=== PATIENT | male | born 1975 | race Caucasian/White ===

== ENCOUNTER 2017-03-31 11:54 | Inpatient (IN) | payer OTHER ==
[2017-03-31 12:42] VITALS: BMI 26.2
--- NOTE | 2017-03-31 15:11 | HP ---
Admission ROS [facility] - [facility] Chief Complaint: I am here to get help because it was a referral and need to be clean. Allergies/Adverse Reactions: Allergies Allergy/AdvReac Type Severity Reaction Status Date / Time No Known Allergies Allergy Verified 03/31/17 14:52 History of Present Illness: pt is a41yr old male with a history of alcohol dependence seeking rehab for treatment. Exam Limitations: No Limitations - Ebola screening Have you traveled outside of the country in the last 21 days: No Have you had contact with anyone from an Ebola affected area: No Have you been sick,other than usual withdrawal symptoms: No Do you have a fever: No - Review of Systems Constitutional: No Symptoms Reported EENT: reports: No Symptoms Reported Respiratory: reports: No Symptoms reported Cardiac: reports: No Symptoms Reported GI: reports: No Symptoms Reported : reports: No Symptoms Reported Musculoskeletal: reports: No Symptoms Reported Integumentary: reports: No Symptoms Reported Neuro: reports: No Symptoms reported Endocrine: reports: No Symptoms Reported Hematology: reports: No Symptoms Reported Psychiatric: reports: No Sypmtoms Reported, Judgement Intact, Orientated x3 Other Systems: Reviewed and Negative Patient History - Patient Medical History Hx Anemia: No Hx Asthma: No Hx Chronic Obstructive Pulmonary Disease (COPD): No Hx Cancer: No Hx Cardiac Disorders: No Hx Congestive Heart Failure: No Hx Hypertension: No Hx Hypercholesterolemia: No Hx Pacemaker: No HX Cerebrovascular Accident: No Hx Seizures: No Hx Diabetes: No Hx Gastrointestinal Disorders: No Hx Liver Disease: No Hx Genitourinary Disorders: No Hx Sexually Transmitted Disorders: No Hx Renal Disease (ESRD): No Hx Thyroid Disease: No Hx Human Immunodeficiency Virus (HIV): No (negative) Hx Hepatitis C: No (negatuve) Hx Depression: No Hx Suicide Attempt: No (denies) Hx Bipolar Disorder: No Hx Schizophrenia: No - Patient Surgical History Past Surgical History: No Hx Neurologic Surgery: No Hx Cataract Extraction: No Hx Cardiac Surgery: No Hx Lung Surgery: No Hx Breast Surgery: No Hx Breast Biopsy: No Hx Abdominal Surgery: No Hx Appendectomy: No Hx Cholecystectomy: No Hx Genitourinary Surgery: No Hx Section: No Hx Orthopedic Surgery: No Anesthesia Reaction: No - PPD History Previous Implant?: Yes Documented Results: Negative w/o proof Implanted On Prior [facility] Admission?: No PPD to be Administered?: Yes - Reproductive History Patient is a Female of Child Bearing Age (11 -55 yrs old): No - Smoking Cessation Smoking history: Current every day smoker Have you smoked in the past 12 months: Yes Aproximately how many cigarettes per day: 20 Hx Chewing Tobacco Use: No Initiated information on smoking cessation: Yes 'Breaking Loose' booklet given: 03/31/17 - Substance & Tx. History Hx Alcohol Use: Yes Hx Substance Use: Yes Substance Use Type: Alcohol, Marijuana Hx Substance Use Treatment: Yes ([facility] detox a year ago 04/2016) - Substances Abused Alcohol-vodka Route: Oral Frequency: 3-6 times per week Amount used: 1 liter Age of first use: 13 Date of Last Use: 03/22/17 Marijuana Route: Smoking Frequency: Daily Amount used: $5 Age of first use: 13 Date of Last Use: 03/31/17 Family Disease History - Family Disease History Family History: Denies Admission Physical Exam [facility] - Vital Signs Vital Signs: Vital Signs - 24 hr 03/31/17 12:40 Temperature 97.4 F L Pulse Rate 76 Respiratory 20 Rate Blood Pressure 120/71 - Physical General Appearance: Yes: Appropriately Dressed, Mild Distress, Irritable HEENTM: Yes: Normal Voice Respiratory: Yes: Lungs Clear, Normal Breath Sounds, No Respiratory Distress Neck: Yes: No masses,lesions,Nodules Breast: Yes: Within Normal Limits Cardiology: Yes: Regular Rhythm, Regular Rate, S1, S2 Abdominal: Yes: Normal Bowel Sounds, Non Tender Genitourinary: Yes: Within Normal Limits Back: Yes: Normal Inspection Musculoskeletal: Yes: Within Normal Limits Extremities: Yes: Normal Capillary Refill Neurological: Yes: Fully Oriented, Alert, Normal Response Integumentary: Yes: Normal Color Lymphatic: Yes: Within Normal Limits - Diagnostic (1) Alcohol dependence in remission Current Visit: No Status: Chronic (2) Nicotine dependence Current Visit: Yes Status: Chronic Qualifiers: Nicotine product type: cigarettes Substance use status: uncomplicated Qualified Code(s): F17.210 - Nicotine dependence, cigarettes, uncomplicated Cleared for Admission S - Detox or Rehab [facility] Level of Care: Medically Managed Claeared for Rehab Admission: Yes [facility] Breath Alcohol Content Breath Alcohol Content: 0 Urine Drug Screen - Results Drug Screen Negative: No Urine Drug Screen Results: THC-Marijuana
[2017-03-31] MEDS ORDERED: hydrOXYzine PAMOATE 50 MG CAPSULE (FP) PO PRN (15:15)
[2017-03-31] MEDS ORDERED: guaiFENesin/D-METHORPHAN HB 10 ML UNIT-DOSE CUPS PO PRN (15:15)
[2017-03-31] MEDS ORDERED: LOPERAMIDE HCL 2 MG CAPSULE PO PRN (15:15)
[2017-03-31] MEDS ORDERED: MAGNESIUM HYDROX 2400MG/30ML ORAL SUSPENSION 30 ML CUP PO PRN (15:15)
[2017-03-31] MEDS ORDERED: IBUPROFEN 400 MG TABLET (FP) PO PRN (15:15)
[2017-03-31] MEDS ORDERED: MAGNESIUM CITRATE 300 ML BOTTLE PO PRN (15:15)
[2017-03-31] MEDS ORDERED: MAG HYDROX/AL HYDROX/SIMETH 30 ML UNIT-DOSE CUP PO PRN (15:15)
[2017-03-31] MEDS ORDERED: NICOTINE POLACRILEX 4 MG GUM BUC PRN (15:15)
[2017-03-31] MEDS ORDERED: P-EPHED 60MG/TRIPROLIDI 2.5MG TABLET PO PRN (15:15)
[2017-03-31] MEDS ORDERED: MENTHOL/PHENOL 1 EACH UD MM PRN (15:15)
[2017-03-31] MEDS: FLUTICASONE PROP 0.05% 16 GM NASAL SPRAY NS SCH (21:26)
[2017-03-31] MEDS: THIAMINE HCL 100 MG TABLET (FP) PO SCH (21:29)
[2017-03-31] MEDS: diphenhydrAMINE HCL 50 MG CAPSULE PO PRN (21:29)
[2017-03-31] MEDS ORDERED: PT OWN MED DRAWER 7, Y5N ONE (21:44)
[2017-03-31 22:07] LABS: URINE APPEARANCE CLEAR; URINE BILIRUBIN NEGATIVE (NEGATIVE); URINE BLOOD NEGATIVE (NEGATIVE); URINE COLOR YELLOW; URINE GLUCOSE (UA) NEGATIVE (NEGATIVE); URINE KETONE NEGATIVE (NEGATIVE); URINE LEUK ESTERASE NEGATIVE (NEGATIVE); URINE NITRITE NEGATIVE (NEGATIVE); URINE PROTEIN NEGATIVE (NEGATIVE); URINE UROBILINOGEN NEGATIVE mg/dL (0.2-1.0)
[2017-04-01] MEDS ORDERED: PT OWN MED DRAWER 7, Y5N ONE (08:58)
--- NOTE | 2017-04-01 09:26 | HP ---
Psychiatrist Admission - Data Date of interview: 04/01/17 Admission source[facility] Identifying data: This is the first [facility] admission for this 41 years old single male, unemployed on food stamp , homeless Medical History: Unremakable. Smokes cigarettes 1ppd Psychiatric History: Denies history of previous psychiatric treatment Physical/Sexual Abuse/Trauma History: Denies history of emotional, physical or sexual abuse as well as DV relationship Additional Comment: Reports history multiple misdemeanor arrests. Denies being on probation at present Vital Signs: Vital Signs - 24 hr 03/31/17 04/01/17 04/01/17 12:40 00:30 03:30 Temperature 97.4 F L Pulse Rate 76 Respiratory 20 18 18 Rate Blood Pressure 120/71 04/01/17 06:50 Temperature 97.6 F Pulse Rate 62 Respiratory 18 Rate Blood Pressure 115/74 Allergies/Adverse Reactions: Allergies Allergy/AdvReac Type Severity Reaction Status Date / Time No Known Allergies Allergy Verified 03/31/17 14:52 Date of last physical exam: 03/31/17 Concur with the findings of this exam: Yes - Substance Abuse/Tx History Hx Alcohol Use: Yes Hx Substance Use: Yes Substance Use Type: Alcohol (Started drinking alcohol at age 13, consumes one liter 3-6 times weekly. Last drink on 03/22/17), Marijuana (Started smoking marijuana at age 13, consumes $5 worth daily. Last smoked on 03/31/17) Hx Substance Use Treatment: Yes (5 previous inpt detox & 5 inpt rehab) - Admission Criteria Previous failed treatment: No Poor recovery environment: Yes Lacks judgement: Yes Mental Status Exam - Mental Status Exam Alert and Oriented to: Time, Place, Person Cognitive Function: Fair Patient Appearance: Well Groomed Mood: Anxious Affect: Appropriate Patient Behavior: Cooperative Speech Pattern: Clear Voice Loudness: Normal Thought Process: Intact, Goal Oriented Thought Disorder: Not Present Hallucinations: Denies Suicidal Ideation: Denies Homicidal Ideation: Denies Insight/Judgement: Fair Sleep: Well Appetite: Good Muscle strength/Tone: Normal Gait/Station: Normal Psychiatric Findings - Problem List ([place] 1, 2,3) (1) Alcohol dependence Current Visit: Yes Status: Acute (2) Cannabis dependence Current Visit: Yes Status: Acute (3) Nicotine dependence Current Visit: Yes Status: Chronic Qualifiers: Nicotine product type: cigarettes Substance use status: uncomplicated Qualified Code(s): F17.210 - Nicotine dependence, cigarettes, uncomplicated (4) Substance-induced anxiety disorder Current Visit: Yes Status: Acute - Initial Treatment Plan Initial Treatment Plan: Monitor progress
[2017-04-01 10:05] LABS: MCH 35.1 pg (25.7-33.7); MCHC 34.1 g/dl (32.0-35.9); MEAN CELL VOLUME 102.8 fl (80-96); PLATELET COUNT 217 K/MM3 (134-434); RDW 13.5 % (11.9-15.9); WHITE BLOOD COUNT 5.8 K/mm3 (4.0-10.0)
[2017-04-01 10:27] LABS: ALBUMIN 3.9 g/dl (3.4-5.0); ALK PHOS 52 U/L (45-117); ANION GAP 5 (8-16); BILIRUBIN,TOTAL 0.2 mg/dL (0.2-1.0); CO2 28 mmol/L (21-32); CREATININE 0.9 mg/dL (0.7-1.3); GLUCOSE,RANDOM 82 mg/dL (74-106); SGOT/AST 14 U/L (15-37); SGPT/ALT 16 U/L (12-78); TOT PROT 6.9 g/dl (6.4-8.2)
[2017-04-01] MEDS: LORATADINE 10 MG TABLET PO SCH (10:46)
[2017-04-01] MEDS: NICOTINE 21 MG/24 HOURS TOPICAL PATCH TD SCH (10:46)
[2017-04-01] MEDS: PRENATAL VITAMINS W/ FOLIC ACID TABLET (FP) PO SCH (10:46)
[2017-04-01] MEDS: FLUTICASONE PROP 0.05% 16 GM NASAL SPRAY NS SCH ×2 (10:46→21:39)
--- NOTE | 2017-04-01 11:27 | EKG ---
Test Reason : Blood Pressure : / mmHG Vent. Rate : 049 BPM Atrial Rate : 049 BPM P-R Int : 156 ms QRS Dur : 096 ms QT Int : 418 ms P-R-T Axes : 061 054 056 degrees QTc Int : 377 ms SINUS BRADYCARDIA OTHERWISE NORMAL ECG NO PREVIOUS ECGS AVAILABLE Confirmed by KAJAL CAIN, MICHELE ([id number]) on 04/01/2017 11:27:47 AM Referred By: Salomon Bradford Confirmed By:MICHELE RDZ MD
[2017-04-01] MEDS: THIAMINE HCL 100 MG TABLET (FP) PO SCH (21:39)
[2017-04-01] MEDS: diphenhydrAMINE HCL 50 MG CAPSULE PO PRN (23:04)
[2017-04-02] MEDS: PRENATAL VITAMINS W/ FOLIC ACID TABLET (FP) PO SCH (09:50)
[2017-04-02] MEDS: LORATADINE 10 MG TABLET PO SCH (09:50)
[2017-04-02] MEDS: NICOTINE 21 MG/24 HOURS TOPICAL PATCH TD SCH (09:51)
[2017-04-02] MEDS: FLUTICASONE PROP 0.05% 16 GM NASAL SPRAY NS SCH ×2 (09:51→21:24)
[2017-04-02] MEDS: THIAMINE HCL 100 MG TABLET (FP) PO SCH (21:24)
[2017-04-02] MEDS: diphenhydrAMINE HCL 50 MG CAPSULE PO PRN (21:25)
[2017-04-03] MEDS: LORATADINE 10 MG TABLET PO SCH (10:08)
[2017-04-03] MEDS: FLUTICASONE PROP 0.05% 16 GM NASAL SPRAY NS SCH ×2 (10:08→21:36)
[2017-04-03] MEDS: PRENATAL VITAMINS W/ FOLIC ACID TABLET (FP) PO SCH (10:08)
[2017-04-03] MEDS: NICOTINE 21 MG/24 HOURS TOPICAL PATCH TD SCH (10:09)
[2017-04-03] MEDS: THIAMINE HCL 100 MG TABLET (FP) PO SCH (21:26)
[2017-04-03] MEDS: diphenhydrAMINE HCL 50 MG CAPSULE PO PRN (21:26)
[2017-04-04] MEDS: FLUTICASONE PROP 0.05% 16 GM NASAL SPRAY NS SCH ×2 (09:56→21:39)
[2017-04-04] MEDS: NICOTINE 21 MG/24 HOURS TOPICAL PATCH TD SCH (09:57)
[2017-04-04] MEDS: PRENATAL VITAMINS W/ FOLIC ACID TABLET (FP) PO SCH (09:57)
[2017-04-04] MEDS: ACETAMINOPHEN 325 MG TABLET (FP) PO PRN ×2 (09:57→22:32)
[2017-04-04] MEDS: LORATADINE 10 MG TABLET PO SCH (09:57)
[2017-04-04] MEDS: THIAMINE HCL 100 MG TABLET (FP) PO SCH (21:29)
[2017-04-04] MEDS: diphenhydrAMINE HCL 50 MG CAPSULE PO PRN (21:29)
[2017-04-05] MEDS: ACETAMINOPHEN 325 MG TABLET (FP) PO PRN ×3 (09:53→23:50)
[2017-04-05] MEDS: FLUTICASONE PROP 0.05% 16 GM NASAL SPRAY NS SCH ×2 (09:54→21:40)
[2017-04-05] MEDS: LORATADINE 10 MG TABLET PO SCH (09:54)
[2017-04-05] MEDS: NICOTINE 21 MG/24 HOURS TOPICAL PATCH TD SCH (09:55)
[2017-04-05] MEDS: PRENATAL VITAMINS W/ FOLIC ACID TABLET (FP) PO SCH (10:04)
[2017-04-05] MEDS: THIAMINE HCL 100 MG TABLET (FP) PO SCH (21:40)
[2017-04-05] MEDS: diphenhydrAMINE HCL 50 MG CAPSULE PO PRN (21:40)
[2017-04-06] MEDS: LORATADINE 10 MG TABLET PO SCH (10:06)
[2017-04-06] MEDS: NICOTINE 21 MG/24 HOURS TOPICAL PATCH TD SCH (10:06)
[2017-04-06] MEDS: FLUTICASONE PROP 0.05% 16 GM NASAL SPRAY NS SCH ×2 (10:06→22:03)
[2017-04-06] MEDS: PRENATAL VITAMINS W/ FOLIC ACID TABLET (FP) PO SCH (10:06)
[2017-04-06] MEDS: ACETAMINOPHEN 325 MG TABLET (FP) PO PRN ×2 (10:07→21:47)
[2017-04-06] MEDS: diphenhydrAMINE HCL 50 MG CAPSULE PO PRN (21:46)
[2017-04-06] MEDS: THIAMINE HCL 100 MG TABLET (FP) PO SCH (21:46)
[2017-04-07] MEDS: ACETAMINOPHEN 325 MG TABLET (FP) PO PRN (10:11)
[2017-04-07] MEDS: PRENATAL VITAMINS W/ FOLIC ACID TABLET (FP) PO SCH (10:12)
[2017-04-07] MEDS: LORATADINE 10 MG TABLET PO SCH (10:12)
[2017-04-07] MEDS: NICOTINE 21 MG/24 HOURS TOPICAL PATCH TD SCH (10:13)
[2017-04-07] MEDS: FLUTICASONE PROP 0.05% 16 GM NASAL SPRAY NS SCH ×2 (10:13→21:24)
[2017-04-07] MEDS: diphenhydrAMINE HCL 50 MG CAPSULE PO PRN (21:24)
[2017-04-07] MEDS: THIAMINE HCL 100 MG TABLET (FP) PO SCH (21:24)
[2017-04-08] MEDS: LORATADINE 10 MG TABLET PO SCH (10:16)
[2017-04-08] MEDS: ACETAMINOPHEN 325 MG TABLET (FP) PO PRN (10:16)
[2017-04-08] MEDS: PRENATAL VITAMINS W/ FOLIC ACID TABLET (FP) PO SCH (10:16)
[2017-04-08] MEDS: NICOTINE 21 MG/24 HOURS TOPICAL PATCH TD SCH (10:17)
[2017-04-08] MEDS: FLUTICASONE PROP 0.05% 16 GM NASAL SPRAY NS SCH ×2 (10:18→22:20)
[2017-04-08] MEDS: THIAMINE HCL 100 MG TABLET (FP) PO SCH (22:19)
[2017-04-08] MEDS: diphenhydrAMINE HCL 50 MG CAPSULE PO PRN (22:21)
[2017-04-09] MEDS: NICOTINE 21 MG/24 HOURS TOPICAL PATCH TD SCH (10:19)
[2017-04-09] MEDS: FLUTICASONE PROP 0.05% 16 GM NASAL SPRAY NS SCH ×2 (10:19→21:30)
[2017-04-09] MEDS: PRENATAL VITAMINS W/ FOLIC ACID TABLET (FP) PO SCH (10:20)
[2017-04-09] MEDS: LORATADINE 10 MG TABLET PO SCH (10:20)
[2017-04-09] MEDS: diphenhydrAMINE HCL 50 MG CAPSULE PO PRN (21:30)
[2017-04-09] MEDS: THIAMINE HCL 100 MG TABLET (FP) PO SCH (21:30)
[2017-04-10] MEDS: NICOTINE 21 MG/24 HOURS TOPICAL PATCH TD SCH (09:49)
[2017-04-10] MEDS: LORATADINE 10 MG TABLET PO SCH (09:49)
[2017-04-10] MEDS: FLUTICASONE PROP 0.05% 16 GM NASAL SPRAY NS SCH ×2 (09:49→21:53)
[2017-04-10] MEDS: PRENATAL VITAMINS W/ FOLIC ACID TABLET (FP) PO SCH (09:49)
[2017-04-10] MEDS: THIAMINE HCL 100 MG TABLET (FP) PO SCH (21:53)
[2017-04-11] MEDS: NICOTINE 21 MG/24 HOURS TOPICAL PATCH TD SCH (10:02)
[2017-04-11] MEDS: FLUTICASONE PROP 0.05% 16 GM NASAL SPRAY NS SCH ×2 (10:02→23:21)
[2017-04-11] MEDS: LORATADINE 10 MG TABLET PO SCH (10:03)
[2017-04-11] MEDS: PRENATAL VITAMINS W/ FOLIC ACID TABLET (FP) PO SCH (10:03)
[2017-04-11] MEDS: THIAMINE HCL 100 MG TABLET (FP) PO SCH (23:20)
[2017-04-11] MEDS: diphenhydrAMINE HCL 50 MG CAPSULE PO PRN (23:21)
[2017-04-12] MEDS: LORATADINE 10 MG TABLET PO SCH (10:20)
[2017-04-12] MEDS: PRENATAL VITAMINS W/ FOLIC ACID TABLET (FP) PO SCH (10:20)
[2017-04-12] MEDS: FLUTICASONE PROP 0.05% 16 GM NASAL SPRAY NS SCH ×2 (10:21→21:28)
[2017-04-12] MEDS: NICOTINE 21 MG/24 HOURS TOPICAL PATCH TD SCH (10:21)
[2017-04-12] MEDS: THIAMINE HCL 100 MG TABLET (FP) PO SCH (21:28)
[2017-04-13] MEDS: FLUTICASONE PROP 0.05% 16 GM NASAL SPRAY NS SCH ×2 (09:54→22:39)
[2017-04-13] MEDS: PRENATAL VITAMINS W/ FOLIC ACID TABLET (FP) PO SCH (09:54)
[2017-04-13] MEDS: LORATADINE 10 MG TABLET PO SCH (09:54)
[2017-04-13] MEDS: NICOTINE 21 MG/24 HOURS TOPICAL PATCH TD SCH (09:55)
[2017-04-13] MEDS: THIAMINE HCL 100 MG TABLET (FP) PO SCH (22:38)
[2017-04-13] MEDS: diphenhydrAMINE HCL 50 MG CAPSULE PO PRN (22:38)
[2017-04-14 07:05] VITALS: TEMP 97.8
[2017-04-14] MEDS: LORATADINE 10 MG TABLET PO SCH (10:01)
[2017-04-14] MEDS: NICOTINE 21 MG/24 HOURS TOPICAL PATCH TD SCH (10:01)
[2017-04-14] MEDS: FLUTICASONE PROP 0.05% 16 GM NASAL SPRAY NS SCH ×2 (10:01→21:30)
[2017-04-14] MEDS: PRENATAL VITAMINS W/ FOLIC ACID TABLET (FP) PO SCH (10:01)
[2017-04-14] MEDS: THIAMINE HCL 100 MG TABLET (FP) PO SCH (21:31)
[2017-04-14] MEDS: diphenhydrAMINE HCL 50 MG CAPSULE PO PRN (21:31)
[2017-04-15] MEDS: LORATADINE 10 MG TABLET PO SCH (10:02)
[2017-04-15] MEDS: PRENATAL VITAMINS W/ FOLIC ACID TABLET (FP) PO SCH (10:02)
[2017-04-15] MEDS: FLUTICASONE PROP 0.05% 16 GM NASAL SPRAY NS SCH ×2 (10:02→22:23)
[2017-04-15] MEDS: NICOTINE 21 MG/24 HOURS TOPICAL PATCH TD SCH (10:02)
[2017-04-15] MEDS: diphenhydrAMINE HCL 50 MG CAPSULE PO PRN (22:23)
[2017-04-15] MEDS: THIAMINE HCL 100 MG TABLET (FP) PO SCH (22:23)
[2017-04-16 07:16] VITALS: BP 125/88; PULSE 95
--- NOTE | 2017-04-16 09:24 | PN ---
Psychiatric Progress Note Vital Signs: Vital Signs Period Temp Pulse Resp BP Sys/Fry Pulse Ox Last 24 Hr 97.8 F 95 18-18 125/88 Date of Session: 04/16/17 Chief Complaint:: Discharge Note HPI: Patient addressing Alcohol and Cannabis Dependence comorbid with Nicotine Dependence and Substance-Induced Anxiety Disorder Current Medications: Active Medications Generic Name Dose Route Start Last Admin Trade Name Freq PRN Reason Stop Dose Admin Acetaminophen 650 mg 03/31/17 15:15 04/08/17 10:16 Tylenol - PO 650 mg Q4H PRN Administration PAIN Al Hydroxide/Mg Hydroxide 30 ml 03/31/17 15:15 Mylanta Oral Suspension - PO Q6H PRN DYSPEPSIA Diphenhydramine HCl 50 mg 03/31/17 15:15 04/15/17 22:23 Benadryl - PO 50 mg HSMR1 PRN Administration INSOMNIA Eucalyptus/Menthol/Phenol/Sorbitol 1 each 03/31/17 15:15 Cepastat Lozenge - MM Q4H PRN SORE THROAT Fluticasone Propionate 1 spray 03/31/17 22:00 04/15/17 22:23 Flonase - NS 1 spray BID WYATT Administration Guaifenesin 10 ml 03/31/17 15:15 Robitussin Dm - PO Q6H PRN COUGH Hydroxyzine Pamoate 50 mg 03/31/17 15:15 Vistaril - PO Q4H PRN AGITATION Ibuprofen 400 mg 03/31/17 15:15 04/03/17 10:07 Motrin - PO 400 mg Q6H PRN Administration SEVERE PAIN Loperamide HCl 4 mg 03/31/17 15:15 Imodium - PO Q6H PRN DIARRHEA Loratadine 10 mg 04/01/17 10:00 04/15/17 10:02 Claritin - PO 10 mg DAILY WYATT Administration Magnesium Citrate 300 ml 03/31/17 15:15 Citroma - PO Q48H PRN CONSTIPATION Magnesium Hydroxide 30 ml 03/31/17 15:15 Milk Of Magnesia - PO DAILY PRN CONSTIPATION Nicotine 21 mg 04/01/17 10:00 04/15/17 10:02 Nicoderm Patch - TD 21 mg DAILY WYATT Administration Nicotine Polacrilex 4 mg 03/31/17 15:15 Nicorette Gum - BUC Q2H PRN NICOTINE REPLACEMENT RX Multivit/Folic Acid/Iron 1 tab 04/01/17 10:00 04/15/17 10:02 Vitamins (Sjr) - PO 1 tab DAILY WYATT Administration Pseudoephedrine/Triprolidine 1 combo 03/31/17 15:15 Actifed - PO TID PRN NASAL CONGESTION Thiamine HCl 100 mg 03/31/17 22:00 04/15/17 22:23 Vitamin B1 - PO 100 mg HS WYATT Administration Current Side Effect: No Lab tests ordered: Yes Lab tests reviewed: Yes Provider note:: Patient has completed this program today. He has met his treatment goals and will continue to address his issues in outpatient treatment at [facility]. Told senior grant writer that from his participation in this program , he has learned to identify his triggers and has acquired the tools to address them. He is stable for discharge today Total face to face time:: 35 Mental Status Exam - Mental Status Exam Alert and Oriented to: Time, Place, Person Cognitive Function: Fair Patient Appearance: Well Groomed Mood: Hopeful, Euthymic Affect: Appropriate Patient Behavior: Cooperative Speech Pattern: Clear Voice Loudness: Normal Thought Process: Intact, Goal Oriented Thought Disorder: Not Present Hallucinations: Denies Homicidal Ideation: Denies Insight/Judgement: Fair Sleep: Fair Appetite: Good Muscle strength/Tone: Normal Gait/Station: Normal Psychiatric Treatment Plan - Problem List (1) Alcohol dependence Current Visit: Yes (2) Cannabis dependence Current Visit: Yes (3) Nicotine dependence Current Visit: Yes Qualifiers: Nicotine product type: cigarettes Substance use status: uncomplicated Qualified Code(s): F17.210 - Nicotine dependence, cigarettes, uncomplicated (4) Substance-induced anxiety disorder Current Visit: Yes Initial treatment plan: Patient is discharged today and referred to [facility] for outpatient treatment
[2017-04-16] MEDS: PRENATAL VITAMINS W/ FOLIC ACID TABLET (FP) PO SCH (09:55)
[2017-04-16] MEDS: LORATADINE 10 MG TABLET PO SCH (09:55)
[2017-04-16] MEDS: FLUTICASONE PROP 0.05% 16 GM NASAL SPRAY NS SCH (09:56)
[2017-04-16] MEDS: NICOTINE 21 MG/24 HOURS TOPICAL PATCH TD SCH (09:56)
== END 2017-04-16 10:00 | disposition home or self-care (01) | DRG 772 ==
LOC: YASAS 11:54 → Y3W 16:11
PROVIDERS: ADMIT Psychiatry & Neurology Psychiatry; ATTEND Psychiatry & Neurology Psychiatry
PROC: HZ42ZZZ Group Counseling for Substance Abuse Treatment, Cognitive-Behavioral (ICD-10-PCS; principal; 2017-03-31)
DX: F10.20 Alcohol dependence, uncomplicated (principal); F12.20 Cannabis dependence, uncomplicated; F17.210 Nicotine dependence, cigarettes, uncomplicated; F19.280 Other psychoactive substance dependence with psychoactive substance-induced anxiety disorder
CPT/HCPCS: 36415; 80053; 81003; 85027; 86593; 93005; 93010

== ENCOUNTER 2017-12-27 13:29 | Inpatient (IN) | payer OTHER ==
[2017-12-27 16:16] VITALS: BMI 23.6
--- NOTE | 2017-12-27 20:59 | HP ---
Admission [facility] Chief Complaint: I am here for rehab for alcohol Allergies/Adverse Reactions: Allergies Allergy/AdvReac Type Severity Reaction Status Date / Time No Known Allergies Allergy Verified 03/31/17 14:52 History of Present Illness: 42 yo male with hx of nicotine and alcohol dependence is here seeking rehab. PMHX: HTN not on medications, anxiety, insomnia . Denies suicidal / homicidal ideation or suicide attempts. Longest period of sobriety 5 months. Denies hx of seizures, reports hx of blackouts with last episode a week ago. Exam Limitations: No Limitations - Ebola screening Have you traveled outside of the country in the last 21 days: No Have you had contact with anyone from an Ebola affected area: No Have you been sick,other than usual withdrawal symptoms: No - Review of Systems Constitutional: Chills, Diaphoresis, Loss of Appetite, Changes in sleep, Weakness, Unintentional Wgt. Loss (20 lbs over the past three months) EENT: reports: No Symptoms Reported, Other (missing front teeth) Respiratory: reports: Other (deviated septum, reports difficulty breathing as result) Cardiac: reports: No Symptoms Reported GI: reports: Poor Appetite, Poor Fluid Intake : reports: No Symptoms Reported Musculoskeletal: reports: Joint Pain (right hip x 3 months with difficulty bending forward), Other (hx of dislocated right shoulder) Integumentary: reports: No Symptoms Reported Neuro: reports: Tremors (continues to experience tremors after detox self from alcohol) Endocrine: reports: No Symptoms Reported Hematology: reports: No Symptoms Reported Psychiatric: reports: Orientated x3, Depressed Other Systems: Reviewed and Negative Patient History - Patient Medical History Hx Anemia: No Hx Asthma: No Hx Chronic Obstructive Pulmonary Disease (COPD): No Hx Cancer: No Hx Cardiac Disorders: No Hx Congestive Heart Failure: No Hx Hypertension: Yes (when going through withdrawal ) Hx Hypercholesterolemia: No Hx Pacemaker: No HX Cerebrovascular Accident: No Hx Seizures: No Hx Dementia: No Hx Diabetes: No Hx Gastrointestinal Disorders: No Hx Liver Disease: No Hx Genitourinary Disorders: No Hx Sexually Transmitted Disorders: No Hx Renal Disease (ESRD): No Hx Thyroid Disease: No Hx Human Immunodeficiency Virus (HIV): No (last tested 2 months ago ) Hx Hepatitis C: No (negatuve) Hx Depression: No Hx Suicide Attempt: No (denies) Hx Bipolar Disorder: No Hx Schizophrenia: No - Patient Surgical History Past Surgical History: No Hx Neurologic Surgery: No Hx Cataract Extraction: No Hx Cardiac Surgery: No Hx Lung Surgery: No Hx Breast Surgery: No Hx Breast Biopsy: No Hx Abdominal Surgery: No Hx Appendectomy: No Hx Cholecystectomy: No Hx Genitourinary Surgery: No Hx Section: No Hx Orthopedic Surgery: No Anesthesia Reaction: No - PPD History Previous Implant?: Yes Documented Results: Negative w/proof Date: 04/02/17 PPD to be Administered?: No - Reproductive History Patient is a Female of Child Bearing Age (11 -55 yrs old): No - Smoking Cessation Smoking history: Current every day smoker Have you smoked in the past 12 months: Yes Aproximately how many cigarettes per day: 20 Hx Chewing Tobacco Use: No Initiated information on smoking cessation: Yes 'Breaking Loose' booklet given: 12/27/17 - Substance & Tx. History Hx Alcohol Use: Yes Hx Substance Use: Yes Substance Use Type: Alcohol Hx Substance Use Treatment: Yes ([facility] 03/31/17 - 04/16/17) - Substances Abused Alcohol Route: Oral Frequency: 3-6 times per week Amount used: 1 litter of vodka Age of first use: 13 Date of Last Use: 12/24/17 (Reports on average drinks 4x a week) Family Disease History - Family Disease History Family Disease History: Other: Father (alive, unknown ), Mother (alive, unknown ) Admission Physical Exam [facility] - Vital Signs Vital Signs: Vital Signs - 24 hr 12/27/17 16:14 Temperature 96.7 F L Pulse Rate 86 Respiratory 20 Rate Blood Pressure 137/83 - Physical General Appearance: Yes: Appropriately Dressed, Thin, Anxious HEENTM: Yes: Hearing grossly Normal, Normal ENT Inspection, Normocephalic, Normal Voice, PRASHANT, Pharynx Normal, Tm's normal Respiratory: Yes: Chest Non-Tender, Lungs Clear, Normal Breath Sounds, No Respiratory Distress, No Accessory Muscle Use Neck: Yes: Within Normal Limits Breast: Yes: Breast Exam Deferred Cardiology: Yes: Regular Rhythm, Regular Rate Abdominal: Yes: Normal Bowel Sounds, Non Tender, Flat, Soft Genitourinary: Yes: Within Normal Limits Back: Yes: Normal Inspection Musculoskeletal: Yes: full range of Motion, Gait Steady, Pelvis Stable, Other ( pain right hip) Extremities: Yes: Normal Capillary Refill, Normal Inspection, Normal Range of Motion, Non-Tender Neurological: Yes: intermediate frame tender II-XII NML intact, Fully Oriented, Alert, Motor Strength 5/5, Normal Response, Depressed Affect Integumentary: Yes: Normal Color, Dry, Warm Lymphatic: Yes: Within Normal Limits - Diagnostic (1) Right hip pain Current Visit: Yes Status: Acute (2) Alcohol dependence Current Visit: Yes Status: Acute Qualifiers: Substance use status: uncomplicated Qualified Code(s): F10.20 - Alcohol dependence, uncomplicated (3) Nicotine dependence Current Visit: Yes Status: Chronic Qualifiers: Nicotine product type: cigarettes Substance use status: uncomplicated Qualified Code(s): F17.210 - Nicotine dependence, cigarettes, uncomplicated [facility] Breath Alcohol Content Breath Alcohol Content: 0 Urine Drug Screen - Results Drug Screen Negative: No Urine Drug Screen Results: THC-Marijuana Inpatient Rehab Admission - Initial Determination Are CD services needed?: Yes Free of communicable disease: Yes Not in need of hospitalization: Yes - Rehab Admission Criteria Previous failed treatment: Yes Poor recovery environment: Yes Comorbidities: Yes Lacks judgement: Yes Patient is meeting Inpatient Rehab admission criteria:: Yes
[2017-12-27] MEDS ORDERED: MENTHOL/PHENOL 1 EACH UD MM PRN (21:10)
[2017-12-27] MEDS ORDERED: guaiFENesin/D-METHORPHAN HB 10 ML UNIT-DOSE CUPS PO PRN (21:10)
[2017-12-27] MEDS ORDERED: P-EPHED 60MG/TRIPROLIDI 2.5MG TABLET PO PRN (21:10)
[2017-12-27] MEDS ORDERED: NICOTINE POLACRILEX 2 MG GUM BC PRN (21:10)
[2017-12-27] MEDS ORDERED: MAGNESIUM HYDROX 2400MG/30ML ORAL SUSPENSION 30 ML CUP PO PRN (21:10)
[2017-12-27] MEDS ORDERED: MAG HYDROX/AL HYDROX/SIMETH 30 ML UNIT-DOSE CUP PO PRN (21:10)
[2017-12-27] MEDS ORDERED: MAGNESIUM CITRATE 300 ML BOTTLE PO PRN (21:10)
[2017-12-27] MEDS ORDERED: ACETAMINOPHEN 325 MG TABLET (FP) PO PRN (21:10)
[2017-12-27] MEDS: MELATONIN 5 MG TABLETS PO PRN (23:02)
[2017-12-27 23:03] LABS: URINE APPEARANCE CLOUDY; URINE BILIRUBIN NEGATIVE (<2.0 mg/dL); URINE COLOR YELLOW; URINE GLUCOSE (UA) NEGATIVE (NEGATIVE); URINE KETONE NEGATIVE (NEGATIVE); URINE LEUK ESTERASE NEGATIVE (NEGATIVE); URINE NITRITE NEGATIVE (NEGATIVE); URINE PROTEIN NEGATIVE (NEGATIVE); URINE UROBILINOGEN NEGATIVE mg/dL (0.2-1.0)
[2017-12-27] MEDS: LIDOCAINE PATCH REMOVAL MC SCH (23:03)
[2017-12-27] MEDS: LIDOCAINE 5% TOPICAL PATCH TP SCH (23:04)
[2017-12-27] MEDS: FLUTICASONE PROP 0.05% 16 GM NASAL SPRAY NS SCH (23:05)
[2017-12-27] MEDS: THIAMINE HCL 100 MG TABLET (FP) PO SCH (23:05)
[2017-12-28] MEDS: PRENATAL VITAMINS W/ FOLIC ACID TABLET (FP) PO SCH (09:57)
[2017-12-28] MEDS: LORATADINE 10 MG TABLET PO SCH (09:57)
[2017-12-28] MEDS: LIDOCAINE 5% TOPICAL PATCH TP SCH (09:57)
[2017-12-28] MEDS: NICOTINE 21 MG/24 HOURS TOPICAL PATCH TD SCH (09:57)
[2017-12-28 10:00] LABS: HEMATOCRIT 44.3 % (35.4-49); HEMOGLOBIN 15.3 GM/dL (11.7-16.9); MCH 36.7 pg (25.7-33.7); MCHC 34.6 g/dl (32.0-35.9); MEAN PLT VOLUME 7.7 fl (7.5-11.1); PLATELET COUNT 237 K/MM3 (134-434); RBC 4.18 M/mm3 (4.00-5.60); RDW 14.2 % (11.9-15.9); WHITE BLOOD COUNT 5.9 K/mm3 (4.0-10.0)
[2017-12-28 11:08] LABS: CHLORIDE 102 mmol/L (98-107); POTASSIUM 4.9 mmol/L (3.5-5.1); SODIUM 141 mmol/L (136-145)
--- NOTE | 2017-12-28 11:17 | HP ---
Psychiatrist Admission - Data Date of interview: 12/28/17 Admission source: [facility] Identifying data: This is the second [facility] admission for this 42 years old single male, unemployed on food stamp , homeless, residing in the group home. Medical History: Hypertension, Chronic Right. 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 Smokes cigarettes 1PPD. Psychiatric History: Patient denies history of psychiatric treatment, however feeling very anxious poor sleep and willig to start treatment. Physical/Sexual Abuse/Trauma History: Patient denies history of sexual, physical and verbal abuse. Additional Comment: Patient reports the longest period of abstinence 5 months. Vital Signs: Vital Signs - 24 hr 12/27/17 12/27/17 12/28/17 16:14 22:25 00:30 Temperature 96.7 F L 98.9 F Pulse Rate 86 71 Respiratory 20 18 18 Rate Blood Pressure 137/83 133/80 12/28/17 12/28/17 03:30 06:37 Temperature 97.9 F Pulse Rate 74 Respiratory 18 16 Rate Blood Pressure 122/76 Allergies/Adverse Reactions: Allergies Allergy/AdvReac Type Severity Reaction Status Date / Time No Known Allergies Allergy Verified 12/27/17 21:22 Date of last physical exam: 12/27/17 Concur with the findings of this exam: Yes - Substance Abuse/Tx History Hx Alcohol Use: Yes (1 liter of liqor, beer binge drinking ) Hx Substance Use: Yes Substance Use Type: Marijuana (2-3 times a week) Hx Substance Use Treatment: Yes (several detox/rehab. tx) Mental Status Exam - Mental Status Exam Alert and Oriented to: Time, Place, Person Cognitive Function: Good Patient Appearance: Well Groomed Mood: Anxious Affect: Appropriate, Mood Congruent Patient Behavior: Appropriate, Cooperative Speech Pattern: Clear, Appropriate Voice Loudness: Normal Thought Process: Intact, Goal Oriented Thought Disorder: Not Present Hallucinations: Denies Suicidal Ideation: Denies Homicidal Ideation: Denies Insight/Judgement: Fair Sleep: Poorly, Difficulty falling asleep Appetite: Fair Muscle strength/Tone: Normal Gait/Station: Normal Psychiatric Findings - Problem List ([place] 1, 2,3) (1) Alcohol dependence Current Visit: Yes Status: Acute Qualifiers: Substance use status: uncomplicated Qualified Code(s): F10.20 - Alcohol dependence, uncomplicated (2) Right hip pain Current Visit: Yes Status: Acute (3) Nicotine dependence Current Visit: Yes Status: Chronic Qualifiers: Nicotine product type: cigarettes Substance use status: uncomplicated Qualified Code(s): F17.210 - Nicotine dependence, cigarettes, uncomplicated (4) Cannabis dependence Current Visit: No Status: Acute (5) Substance-induced anxiety disorder Current Visit: No Status: Acute - Initial Treatment Plan Initial Treatment Plan: Discussed indications and properties of Buspar with the patient, patient agreed to start, he made aware of Melatonin PRN for insomnia, will monitor progress as needed.
[2017-12-28 11:24] LABS: ALBUMIN 4.3 g/dl (3.4-5.0); ALK PHOS 80 U/L (45-117); ANION GAP 11 (8-16); BILIRUBIN,TOTAL 0.4 mg/dL (0.2-1.0); BLOOD UREA NITROGEN 16 mg/dL (7-18); CALCIUM 9.5 mg/dL (8.5-10.1); CO2 28 mmol/L (21-32); CREATININE 0.8 mg/dL (0.7-1.3); GLUCOSE,RANDOM 87 mg/dL (74-106); SGOT/AST 20 U/L (15-37); SGPT/ALT 29 U/L (12-78); TOT PROT 7.7 g/dl (6.4-8.2)
[2017-12-28] MEDS: FLUTICASONE PROP 0.05% 16 GM NASAL SPRAY NS SCH ×2 (11:50→21:22)
[2017-12-28] MEDS: busPIRone HCL 5 MG TABLET PO SCH ×2 (14:05→21:22)
[2017-12-28] MEDS: THIAMINE HCL 100 MG TABLET (FP) PO SCH (21:22)
[2017-12-28] MEDS: LIDOCAINE PATCH REMOVAL MC SCH (21:23)
[2017-12-28] MEDS: MELATONIN 5 MG TABLETS PO PRN (23:17)
[2017-12-29] MEDS: busPIRone HCL 5 MG TABLET PO SCH ×3 (06:35→21:27)
[2017-12-29] MEDS: PRENATAL VITAMINS W/ FOLIC ACID TABLET (FP) PO SCH (09:42)
[2017-12-29] MEDS: FLUTICASONE PROP 0.05% 16 GM NASAL SPRAY NS SCH ×2 (09:42→21:27)
[2017-12-29] MEDS: LORATADINE 10 MG TABLET PO SCH (09:42)
[2017-12-29] MEDS: NICOTINE 21 MG/24 HOURS TOPICAL PATCH TD SCH (09:43)
[2017-12-29] MEDS: LIDOCAINE 5% TOPICAL PATCH TP SCH (09:43)
--- NOTE | 2017-12-29 09:49 | EKG ---
Test Reason : Blood Pressure : / mmHG Vent. Rate : 069 BPM Atrial Rate : 069 BPM P-R Int : 138 ms QRS Dur : 090 ms QT Int : 378 ms P-R-T Axes : 061 057 064 degrees QTc Int : 405 ms NORMAL SINUS RHYTHM NORMAL ECG WHEN COMPARED WITH ECG OF 31-MAR-2017 20:19, NO SIGNIFICANT CHANGE WAS FOUND Confirmed by JOSEPH MERINO MD ([id number]) on 12/29/2017 9:49:26 AM Referred By: Confirmed By:JOSEPH MERINO MD
[2017-12-29] MEDS: IBUPROFEN 400 MG TABLET (FP) PO PRN (14:30)
[2017-12-29] MEDS: hydrOXYzine PAMOATE 50 MG CAPSULE (FP) PO PRN (14:30)
[2017-12-29] MEDS: THIAMINE HCL 100 MG TABLET (FP) PO SCH (21:27)
[2017-12-29] MEDS: LIDOCAINE PATCH REMOVAL MC SCH (21:27)
[2017-12-29] MEDS: MELATONIN 5 MG TABLETS PO PRN (23:22)
[2017-12-30] MEDS: busPIRone HCL 5 MG TABLET PO SCH ×3 (06:35→21:42)
[2017-12-30] MEDS: FLUTICASONE PROP 0.05% 16 GM NASAL SPRAY NS SCH ×2 (09:58→21:41)
[2017-12-30] MEDS: NICOTINE 21 MG/24 HOURS TOPICAL PATCH TD SCH (09:59)
[2017-12-30] MEDS: LORATADINE 10 MG TABLET PO SCH (09:59)
[2017-12-30] MEDS: PRENATAL VITAMINS W/ FOLIC ACID TABLET (FP) PO SCH (09:59)
[2017-12-30] MEDS: LIDOCAINE 5% TOPICAL PATCH TP SCH (09:59)
[2017-12-30] MEDS: THIAMINE HCL 100 MG TABLET (FP) PO SCH (21:43)
[2017-12-30] MEDS: LIDOCAINE PATCH REMOVAL MC SCH (22:56)
[2017-12-30] MEDS: MELATONIN 5 MG TABLETS PO PRN (23:06)
[2017-12-31] MEDS: busPIRone HCL 5 MG TABLET PO SCH ×3 (06:09→21:19)
[2017-12-31] MEDS: PRENATAL VITAMINS W/ FOLIC ACID TABLET (FP) PO SCH (09:50)
[2017-12-31] MEDS: FLUTICASONE PROP 0.05% 16 GM NASAL SPRAY NS SCH ×2 (09:50→21:19)
[2017-12-31] MEDS: LIDOCAINE 5% TOPICAL PATCH TP SCH (09:51)
[2017-12-31] MEDS: NICOTINE 21 MG/24 HOURS TOPICAL PATCH TD SCH (09:53)
[2017-12-31] MEDS: LORATADINE 10 MG TABLET PO SCH (09:53)
[2017-12-31] MEDS: THIAMINE HCL 100 MG TABLET (FP) PO SCH (21:19)
[2017-12-31] MEDS: LIDOCAINE PATCH REMOVAL MC SCH (21:20)
[2018-01-01] MEDS: MELATONIN 5 MG TABLETS PO PRN (00:03)
[2018-01-01] MEDS: busPIRone HCL 5 MG TABLET PO SCH ×3 (06:09→21:24)
[2018-01-01] MEDS: FLUTICASONE PROP 0.05% 16 GM NASAL SPRAY NS SCH ×2 (09:51→21:25)
[2018-01-01] MEDS: LORATADINE 10 MG TABLET PO SCH (09:51)
[2018-01-01] MEDS: LIDOCAINE 5% TOPICAL PATCH TP SCH (09:51)
[2018-01-01] MEDS: PRENATAL VITAMINS W/ FOLIC ACID TABLET (FP) PO SCH (09:51)
[2018-01-01] MEDS: NICOTINE 21 MG/24 HOURS TOPICAL PATCH TD SCH (09:51)
[2018-01-01] MEDS: IBUPROFEN 400 MG TABLET (FP) PO PRN (09:53)
[2018-01-01] MEDS: THIAMINE HCL 100 MG TABLET (FP) PO SCH (21:24)
[2018-01-01] MEDS: LIDOCAINE PATCH REMOVAL MC SCH (21:25)
[2018-01-02] MEDS: busPIRone HCL 5 MG TABLET PO SCH ×3 (06:12→21:28)
[2018-01-02] MEDS: LORATADINE 10 MG TABLET PO SCH (10:10)
[2018-01-02] MEDS: PRENATAL VITAMINS W/ FOLIC ACID TABLET (FP) PO SCH (10:10)
[2018-01-02] MEDS: FLUTICASONE PROP 0.05% 16 GM NASAL SPRAY NS SCH ×2 (10:10→21:29)
[2018-01-02] MEDS: LIDOCAINE 5% TOPICAL PATCH TP SCH (10:10)
[2018-01-02] MEDS: NICOTINE 21 MG/24 HOURS TOPICAL PATCH TD SCH (10:10)
[2018-01-02] MEDS: THIAMINE HCL 100 MG TABLET (FP) PO SCH (21:28)
[2018-01-02] MEDS: LIDOCAINE PATCH REMOVAL MC SCH (21:29)
[2018-01-03] MEDS: busPIRone HCL 5 MG TABLET PO SCH ×3 (06:04→21:32)
[2018-01-03] MEDS: LORATADINE 10 MG TABLET PO SCH (10:00)
[2018-01-03] MEDS: LIDOCAINE 5% TOPICAL PATCH TP SCH (10:00)
[2018-01-03] MEDS: NICOTINE 21 MG/24 HOURS TOPICAL PATCH TD SCH (10:01)
[2018-01-03] MEDS: FLUTICASONE PROP 0.05% 16 GM NASAL SPRAY NS SCH ×2 (10:01→21:33)
[2018-01-03] MEDS: PRENATAL VITAMINS W/ FOLIC ACID TABLET (FP) PO SCH (10:02)
[2018-01-03] MEDS: LOPERAMIDE HCL 2 MG CAPSULE PO PRN ×2 (14:09→21:46)
[2018-01-03] MEDS: THIAMINE HCL 100 MG TABLET (FP) PO SCH (21:33)
[2018-01-03] MEDS: LIDOCAINE PATCH REMOVAL MC SCH (21:34)
[2018-01-03] MEDS: MELATONIN 5 MG TABLETS PO PRN (23:29)
[2018-01-04] MEDS: LOPERAMIDE HCL 2 MG CAPSULE PO PRN ×2 (06:13→21:19)
[2018-01-04] MEDS: busPIRone HCL 5 MG TABLET PO SCH ×3 (06:13→21:17)
[2018-01-04] MEDS: LIDOCAINE 5% TOPICAL PATCH TP SCH (10:01)
[2018-01-04] MEDS: PRENATAL VITAMINS W/ FOLIC ACID TABLET (FP) PO SCH (10:01)
[2018-01-04] MEDS: LORATADINE 10 MG TABLET PO SCH (10:01)
[2018-01-04] MEDS: NICOTINE 21 MG/24 HOURS TOPICAL PATCH TD SCH (10:02)
[2018-01-04] MEDS: FLUTICASONE PROP 0.05% 16 GM NASAL SPRAY NS SCH ×2 (10:03→21:17)
[2018-01-04] MEDS: THIAMINE HCL 100 MG TABLET (FP) PO SCH (21:17)
[2018-01-04] MEDS: LIDOCAINE PATCH REMOVAL MC SCH (21:49)
[2018-01-04] MEDS: MELATONIN 5 MG TABLETS PO PRN (23:00)
[2018-01-05] MEDS: busPIRone HCL 5 MG TABLET PO SCH ×3 (05:53→21:16)
[2018-01-05] MEDS: PRENATAL VITAMINS W/ FOLIC ACID TABLET (FP) PO SCH (10:13)
[2018-01-05] MEDS: LORATADINE 10 MG TABLET PO SCH (10:13)
[2018-01-05] MEDS: FLUTICASONE PROP 0.05% 16 GM NASAL SPRAY NS SCH ×2 (10:14→21:17)
[2018-01-05] MEDS: LIDOCAINE 5% TOPICAL PATCH TP SCH (10:15)
[2018-01-05] MEDS: NICOTINE 21 MG/24 HOURS TOPICAL PATCH TD SCH (10:15)
[2018-01-05] MEDS: THIAMINE HCL 100 MG TABLET (FP) PO SCH (21:16)
[2018-01-05] MEDS: LIDOCAINE PATCH REMOVAL MC SCH (21:16)
[2018-01-06] MEDS: busPIRone HCL 5 MG TABLET PO SCH ×3 (06:07→21:29)
[2018-01-06] MEDS: PRENATAL VITAMINS W/ FOLIC ACID TABLET (FP) PO SCH (10:17)
[2018-01-06] MEDS: LIDOCAINE 5% TOPICAL PATCH TP SCH (10:17)
[2018-01-06] MEDS: LORATADINE 10 MG TABLET PO SCH (10:17)
[2018-01-06] MEDS: FLUTICASONE PROP 0.05% 16 GM NASAL SPRAY NS SCH ×2 (10:17→21:29)
[2018-01-06] MEDS: NICOTINE 21 MG/24 HOURS TOPICAL PATCH TD SCH (10:18)
[2018-01-06] MEDS: LIDOCAINE PATCH REMOVAL MC SCH (21:29)
[2018-01-06] MEDS: THIAMINE HCL 100 MG TABLET (FP) PO SCH (21:29)
[2018-01-07] MEDS: busPIRone HCL 5 MG TABLET PO SCH ×3 (06:12→21:29)
[2018-01-07] MEDS: FLUTICASONE PROP 0.05% 16 GM NASAL SPRAY NS SCH ×2 (10:08→21:30)
[2018-01-07] MEDS: LIDOCAINE 5% TOPICAL PATCH TP SCH (10:09)
[2018-01-07] MEDS: PRENATAL VITAMINS W/ FOLIC ACID TABLET (FP) PO SCH (10:09)
[2018-01-07] MEDS: LORATADINE 10 MG TABLET PO SCH (10:09)
[2018-01-07] MEDS: NICOTINE 21 MG/24 HOURS TOPICAL PATCH TD SCH (10:09)
[2018-01-07] MEDS: LOPERAMIDE HCL 2 MG CAPSULE PO PRN (10:14)
[2018-01-07] MEDS: THIAMINE HCL 100 MG TABLET (FP) PO SCH (21:29)
[2018-01-07] MEDS: hydrOXYzine PAMOATE 50 MG CAPSULE (FP) PO PRN (21:29)
[2018-01-07] MEDS: LIDOCAINE PATCH REMOVAL MC SCH (21:30)
[2018-01-07] MEDS: MELATONIN 5 MG TABLETS PO PRN (23:35)
[2018-01-08] MEDS: busPIRone HCL 5 MG TABLET PO SCH ×3 (06:26→21:21)
[2018-01-08] MEDS: LOPERAMIDE HCL 2 MG CAPSULE PO PRN (06:28)
[2018-01-08] MEDS: LORATADINE 10 MG TABLET PO SCH (09:56)
[2018-01-08] MEDS: PRENATAL VITAMINS W/ FOLIC ACID TABLET (FP) PO SCH (09:56)
[2018-01-08] MEDS: FLUTICASONE PROP 0.05% 16 GM NASAL SPRAY NS SCH ×2 (09:57→21:20)
[2018-01-08] MEDS: NICOTINE 21 MG/24 HOURS TOPICAL PATCH TD SCH (09:57)
[2018-01-08] MEDS: LIDOCAINE 5% TOPICAL PATCH TP SCH (09:57)
[2018-01-08] MEDS: hydrOXYzine PAMOATE 50 MG CAPSULE (FP) PO PRN (21:21)
[2018-01-08] MEDS: LIDOCAINE PATCH REMOVAL MC SCH (21:21)
[2018-01-08] MEDS: MELATONIN 5 MG TABLETS PO PRN (21:21)
[2018-01-08] MEDS: THIAMINE HCL 100 MG TABLET (FP) PO SCH (21:21)
[2018-01-09] MEDS: busPIRone HCL 5 MG TABLET PO SCH ×3 (06:33→21:25)
[2018-01-09] MEDS: LORATADINE 10 MG TABLET PO SCH (09:54)
[2018-01-09] MEDS: PRENATAL VITAMINS W/ FOLIC ACID TABLET (FP) PO SCH (09:54)
[2018-01-09] MEDS: LIDOCAINE 5% TOPICAL PATCH TP SCH (09:55)
[2018-01-09] MEDS: FLUTICASONE PROP 0.05% 16 GM NASAL SPRAY NS SCH ×2 (09:55→21:25)
[2018-01-09] MEDS: NICOTINE 21 MG/24 HOURS TOPICAL PATCH TD SCH (09:56)
[2018-01-09] MEDS: MELATONIN 5 MG TABLETS PO PRN (21:25)
[2018-01-09] MEDS: LIDOCAINE PATCH REMOVAL MC SCH (21:25)
[2018-01-09] MEDS: THIAMINE HCL 100 MG TABLET (FP) PO SCH (21:26)
[2018-01-10] MEDS: busPIRone HCL 5 MG TABLET PO SCH (06:52)
[2018-01-10 07:02] VITALS: BP 117/79; PULSE 71; TEMP 98.4
[2018-01-10] MEDS: LOPERAMIDE HCL 2 MG CAPSULE PO PRN (07:32)
[2018-01-10] MEDS: FLUTICASONE PROP 0.05% 16 GM NASAL SPRAY NS SCH (10:04)
[2018-01-10] MEDS: PRENATAL VITAMINS W/ FOLIC ACID TABLET (FP) PO SCH (10:04)
[2018-01-10] MEDS: LORATADINE 10 MG TABLET PO SCH (10:04)
[2018-01-10] MEDS: LIDOCAINE 5% TOPICAL PATCH TP SCH (10:05)
[2018-01-10] MEDS: NICOTINE 21 MG/24 HOURS TOPICAL PATCH TD SCH (10:06)
--- NOTE | 2018-01-10 10:24 | PN ---
Psychiatric Progress Note Vital Signs: Vital Signs Period Temp Pulse Resp BP Sys/Fry Pulse Ox Last 24 Hr 98.4 F 71 16-18 117/79 Date of Session: 01/10/18 Chief Complaint:: Discharge Note HPI: Patient addressing Alcohol and Cannabis Dependence comorbid with Nicotine Dependence, Substance-Induced Anxiety Disorder ROS: Right hip pain Current Medications: Active Medications Generic Name Dose Route Start Last Admin Trade Name Freq PRN Reason Stop Dose Admin Acetaminophen 650 mg 12/27/17 21:10 Tylenol - PO Q4H PRN FEVER Al Hydroxide/Mg Hydroxide 30 ml 12/27/17 21:10 Mylanta Oral Suspension - PO Q6H PRN DYSPEPSIA Buspirone HCl 5 mg 12/28/17 14:00 01/10/18 06:52 Buspar - PO 5 mg TID WYATT Administration Eucalyptus/Menthol/Phenol/Sorbitol 1 each 12/27/17 21:10 Cepastat Lozenge - MM Q4H PRN SORE THROAT Fluticasone Propionate 1 spray 12/27/17 22:00 01/10/18 10:04 Flonase - NS 1 spray BID WYATT Administration Guaifenesin 10 ml 12/27/17 21:10 Robitussin Dm - PO Q6H PRN COUGH Hydroxyzine Pamoate 50 mg 12/27/17 21:10 01/08/18 21:21 Vistaril - PO 50 mg Q4H PRN Administration AGITATION Ibuprofen 400 mg 12/27/17 21:10 01/01/18 09:53 Motrin - PO 400 mg Q6H PRN Administration Pain level 4-6 Lidocaine 1 patch 12/27/17 21:15 01/10/18 10:05 Lidoderm Patch - TP 1 patch DAILY WYATT Administration Loperamide HCl 4 mg 12/27/17 21:10 01/10/18 07:32 Imodium - PO 4 mg Q6H PRN Administration DIARRHEA Loratadine 10 mg 12/28/17 10:00 01/10/18 10:04 Claritin - PO 10 mg DAILY WYATT Administration Magnesium Citrate 300 ml 12/27/17 21:10 Citroma - PO Q48H PRN CONSTIPATION Magnesium Hydroxide 30 ml 12/27/17 21:10 Milk Of Magnesia - PO DAILY PRN CONSTIPATION Melatonin 5 mg 12/27/17 22:00 01/09/18 21:25 Melatonin PO 5 mg HS PRN Administration INSOMNIA Miscellaneous 1 each 12/27/17 22:00 01/09/18 21:25 Lidoderm Patch Removal MC 1 each DAILY@2200 WYATT Administration Nicotine 21 mg 12/28/17 10:00 01/10/18 10:06 Nicoderm Patch - TD Not Given DAILY WYATT Nicotine Polacrilex 2 mg 12/27/17 21:10 Nicorette Gum - BC Q2H PRN NICOTINE REPLACEMENT RX Multivit/Folic Acid/Iron 1 tab 12/28/17 10:00 01/10/18 10:04 Vitamins (Sjr) - PO 1 tab DAILY WYATT Administration Pseudoephedrine/Triprolidine 1 combo 12/27/17 21:10 Actifed - PO TID PRN NASAL CONGESTION Thiamine HCl 100 mg 12/27/17 22:00 01/09/18 21:26 Vitamin B1 - PO 100 mg HS WYATT Administration Current Side Effect: No Lab tests ordered: Yes Lab tests reviewed: Yes Provider note:: Patient has completed this program. He has met his treatment goals and will continue to address his issues in [facility] residential treatment at [facility]. He responded well to Buspar 5 mg po tid. script for 30 days supply of that medication is electronically transmitted to [facility]. He is stable for discharge today Total face to face time:: 35 Mental Status Exam - Mental Status Exam Alert and Oriented to: Time, Place, Person Cognitive Function: Fair Patient Appearance: Well Groomed Mood: Hopeful, Euthymic Affect: Appropriate Patient Behavior: Cooperative Speech Pattern: Clear Voice Loudness: Normal Thought Process: Intact Thought Disorder: Not Present Hallucinations: Denies Suicidal Ideation: Denies Homicidal Ideation: Denies Insight/Judgement: Fair Sleep: Fair Appetite: Fair Muscle strength/Tone: Normal Gait/Station: Normal Psychiatric Treatment Plan - Problem List (1) Alcohol dependence Qualifiers: Substance use status: uncomplicated Qualified Code(s): F10.20 - Alcohol dependence, uncomplicated (3) Nicotine dependence Qualifiers: Nicotine product type: cigarettes Substance use status: uncomplicated Qualified Code(s): F17.210 - Nicotine dependence, cigarettes, uncomplicated (5) Right hip pain Initial treatment plan: Patient is discharged today and 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
== END 2018-01-10 11:00 | disposition home or self-care (01) | DRG 772 ==
LOC: YASAS 13:29 → Y5N 21:11
PROVIDERS: ADMIT Psychiatry & Neurology Psychiatry; ATTEND Psychiatry & Neurology Psychiatry
PROC: HZ42ZZZ Group Counseling for Substance Abuse Treatment, Cognitive-Behavioral (ICD-10-PCS; principal; 2017-12-27)
DX: F10.20 Alcohol dependence, uncomplicated (principal); F12.20 Cannabis dependence, uncomplicated; F17.210 Nicotine dependence, cigarettes, uncomplicated; F19.24 Other psychoactive substance dependence with psychoactive substance-induced mood disorder; I10 Essential (primary) hypertension; M25.551 Pain in right hip; M25.511 Pain in right shoulder
CPT/HCPCS: 36415; 80053; 81003; 85027; 86593; 93005; 93010